=== PATIENT | female | born 1950 | race Caucasian/White ===

== ENCOUNTER 2016-07-23 16:47 | Inpatient (IN) | payer MEDICARE ==
[~2016-07-23] VITALS: Ht 170.2 cm; Wt 107.9 kg
--- NOTE | ~2016-07-23 | ECH ---
Transthoracic Echocardiography Report (TTE) Demographics Patient Name JOO VINES Date of Study 07/24/2016 Patient Number [id number] Visit Number [id number] Date of 1950 Room Number 409 Accession Number [id number] Gender Female Age 66 year(s) Referring Zoe Hester Schedule Supervisor Karine Chan [facility] Physician Physician Interpreting Deny Guerrero Manager [employer] Physician Supervising Ordering Physician Zoe Hester MD, MD/MLP Nurse Stress Causticiser Conclusions Contractility Score Summary Normal Left Ventricular contractility was noted. Summary Technically fair exam. The estimated left ventricular ejection fraction is 55-60%. No significant valvular abnormalities. Recommendation The patient will be given the results of this study by the physician who ordered the exam. Procedure Type of Study TTE procedure:Echo Complete SF. Procedure Date Date: 07/24/2016 Start: 10:44 AM Technical Quality: Fair due to poor acoustical window. Indications:Congestive heart failure, Hypertension, Coronary artery disease, Dizziness and History of CABG. Appropriate Use Criteria: 9 Height: 67 inches Weight: 234 pounds BSA: 2.16 m Rhythm: NSR HR: 60 bpm BP: 133/69 mmHg Allergies - No known allergies. M-Mode/2D Measurements LV Diastolic Dimension: 4.79 cm LV Systolic Dimension: 3.7 cm LV Septum Diastolic: 0.85 cm LV PW Diastolic: 0.83 cm AO Root Dimension: 2.9 cm Cardiac Output: 2.21 l/min LA Dimension: 2.99 cm Cardiac Index: 1.02 l/min*m RV Diastolic Dimension: 3.49 cm LA volume index: 15 ml/m LVOT: 1.71 cm LVOT VTI: 16.02 cm RV Base: 2.3 cm LV Stroke volume: 36.77 ml RV Mid: 1.5 cm LV Stroke volume index: 17.02 ml/m TAPSE: 2.4 cm Doppler Measurements AV Peak Velocity: 1.5 m/s MV Peak E-Wave: 0.68 m/s AV Peak Gradient: 9 mmHg MV Peak A-Wave: 0.6 m/s AV Mean Gradient: 4.67 mmHg MV E/A Ratio: 1.14 LVOT Peak Velocity: 0.85 m/s MV P1/2t: 67.3 msec AV Area (Continuity):1.55 cm MV Deceleration Time: 248.6 msec MV Area (PHT): 3.27 cm PV Peak Velocity: 1.04 m/s E' Septal Velocity: 0.08 m/s PV Peak Gradient: 4.33 mmHg E' Lateral Velocity: 0.1 m/s RA Area: 12.62 cm Findings Left Ventricle Normal left ventricle size and function. Diastolic assessment reveals normal relaxation. Right Ventricle Normal right ventricle structure and function. Left Atrium Normal left atrial size. Right Atrium Normal right atrial size. Mitral Valve Normal mitral valve structure and function. Trivial mitral regurgitation by color Doppler. Aortic Valve The aortic valve is moderately sclerotic. Tricuspid Valve Normal tricuspid valve structure and function. Trivial tricuspid regurgitation by color Doppler. Insufficient jet to calculate pulmonary pressures. Pulmonic Valve The pulmonic valve is not well visualized. Pericardial Effusion No evidence of pericardial effusion. Miscellaneous Visualized portions of the aortic root and ascending aorta appear normal in size. Pleural Effusion No evidence of pleural effusion. Contractility Score LV regional wall motion:(0-Non visualized 1-Normal 2-Hypokinesis 3-Akinesis 4-Dyskinesis 5-Aneurysm) Signature
[~2016-07-23 16:47] MED LIST: ASA CHILDREN'S81 MG PO; ASCORBIC ACID250 MG PO; BENADRYL-DPS25 MG PO; BROVANA15 MCG/2 M IH; CIPRO DPS500 MG PO; COZAAR100 MG PO; FEOSOL-DPS325 MG PO; HYDROCODONE 10M10 MG PO; HYDROCODONE 5MG/5 MG PO; KLOR-CON M2020 ME1 PO; LASIX80 MG PO; LEVAQUIN DPS500 MG PO; LIPITOR DPS20 MG PO; MAALOX DPS30 ML PO; MAG-OX400 MG PO; MIRALAX PACKET17 GM PO; MOBIC7.5 MG PO; NITROSTAT0.4 MG SL; PLAVIX75 MG PO; PROTONIX40 MG PO; PULMICORT0.5 MG/21 IH; SENOKOT S1 TAB PO; SURFAK DPS240 MG PO; SYNTHROID50 MCG PO; TENORMIN DPS50 MG PO; TENORMIN-DPS25 MG PO; TYLENOL DPS325 MG PO; ULTRAM DPS50 MG PO; ZOLOFT DPS50 MG PO; [UNRECOGNIZED DRUG - OTHER] IV
[2016-07-25] MEDS ORDERED: ZOLOFT DPS50 MG PO (21:16)
[2016-07-25] MEDS ORDERED: ZAROXOLYN5 MG PO (21:17)
[2016-07-25] MEDS ORDERED: SYNTHROID DPS0.05 MG PO (21:17)
[2016-07-25] MEDS ORDERED: KLOR-CON M2020 ME1 PO (21:17)
[2016-07-25] MEDS ORDERED: PANTOPRAZOLE SO40 MG PO (21:17)
[2016-07-25] MEDS ORDERED: LIPITOR DPS20 MG PO (21:17)
[2016-07-25] MEDS ORDERED: TENORMIN-DPS25 MG PO (21:18)
[2016-07-25] MEDS ORDERED: LASIX DPS80 MG PO (21:18)
[2016-07-25] MEDS ORDERED: PLAVIX75 MG PO (21:18)
[2016-07-25] MEDS ORDERED: FEOSOL-DPS325 MG PO (21:18)
[2016-07-25] MEDS ORDERED: ASA CHILDREN'S81 MG PO (21:19)
[2016-07-25] MEDS ORDERED: BROVANA15 MCG/2 M IH (21:19)
[2016-07-25] MEDS ORDERED: PULMICORT0.5 MG/2 M IH (21:19)
[2016-07-25] MEDS ORDERED: TYLENOL325 MG PO (21:20)
--- NOTE | 2016-07-29 15:44 | ER ---
ADMIT: 07/23/2016 RM/LOC: 409 [facility] MR#: [id number] [address] [address] JOO VINES [address] [place] [address] Emergency Room Report SEX: F AGE: 66 : 1950 DATE: 07/23/2016 HISTORY: The patient is a 66-year-old female with headache and intractable vomiting at this time. This has been going on for 4 days on and off. She says that it started when she was put on a diuretic metolazone in addition to her diuretic Lasix. She lost 11 pounds in a week and her head is throbbing. She had fever, chills, nausea, and vomiting. REVIEW OF SYSTEMS: Otherwise negative. PAST MEDICAL HISTORY: She has had a CABG, 4 vessel; total left hip; hypertension; CAD; and dizziness. MEDICATIONS: Include; 1. Sertraline. 2. Pantoprazole. 3. Klor-Con. 4. Metolazone. 5. Atorvastatin. 6. Levothyroxine. 7. Atenolol. 8. Furosemide. 9. Clopidogrel or Plavix. 10.Iron sulfate. 11.Aspirin. 12.Formoterol. 13.Budesonide. 14.Tylenol. ALLERGIES: NO ALLERGIES. SOCIAL HISTORY: Lives at home with her . Denies smoking, drugs, or alcohol. PHYSICAL EXAMINATION: GENERAL: Moderate distress female. VITAL SIGNS: Blood pressure 112/84, heart rate 69, respirations 12, temp 97.3, and O2 sats 90%. HEENT: Normal inspection. Pharynx is clear. NECK: Supple. RESPIRATIONS: No distress. CVS: Regular in rate and rhythm. ABDOMEN: Tenderness in the epigastrium due to the vomiting. SKIN: Good color and turgor. ADMIT: 07/23/2016 RM/LOC: 409 [facility] MR#: [id number] [address] [address] JOO VINES [address] [place] [address] Emergency Room Report SEX: F AGE: 66 : 1950 EXTREMITIES: Well perfused. No edema noted. NEUROPSYCH: Oriented x4 and alert. Mood and affect appropriate. at bedside. Cranial nerves II through XII intact. EKG: Bradycardia, 57 beats per minute. BNP 2004. WBC 12, hemoglobin 18, and hematocrit is 51.4. Sodium 133, potassium 3.0, BUN 61, and glucose 170. Alkaline phosphatase is 143 with AST of 7 and GFR of 17. Her urine is pending, we have not got that yet. Dr. Enriquez was contacted for admission. CLINICAL IMPRESSION: Hyperglycemia, hypokalemia, hyponatremia, acute renal insult, congestive heart failure history, nausea and vomiting with moderate dehydration. ILEANA Combs / Jose Nguyen MD / modl JOB #: [id number] CC: Chet Enriquez MD, Attending Physician Chet Enriquez MD, Family Physician
--- NOTE | 2016-08-09 13:11 | HP ---
ADMIT: 07/23/2016 RM/LOC: 409 [facility] MR#: [id number] [id number] [address] JOO VINES [address] [place] [address] History and Physical SEX: F AGE: 66 : 1950 DATE OF SERVICE: CHIEF COMPLAINT: Headache, nausea, and vomiting. HISTORY OF PRESENT ILLNESS: This is a 66-year-old female. She has been having some headache and nausea and vomiting for 4 days, off and on. It started when she was put on diuretic, metolazone. She said over a couple days, she lost about 11 pounds. She started having her head throbbing. She started feeling feverish and chilled, having nausea and vomiting. She also felt lightheaded and woozy and did not like this feeling at all. She did hold her diuretics for couple days but then continued to get worse despite this. PAST MEDICAL HISTORY: Coronary artery disease, status post CABG. She has had a left total hip replacement. She has hypertension. She has chronic kidney disease. She has history of a kidney mass, which is being followed by imaging. Hypothyroidism, hyperlipidemia, GERD, depression, COPD. ALLERGIES: NONE. SOCIAL HISTORY: She lives at home with her . Denies any current illicit drugs or alcohol. FAMILY HISTORY: Reviewed but noncontributory. PHYSICAL EXAMINATION: VITAL SIGNS: Temperature 96.7, pulse 80, respirations 20, blood pressure 133/69, and oxygen saturation 90% on room air. GENERAL: This is a well-appearing 66-year-old female. She is in no apparent distress. She is alert. She is oriented. HEENT: Pupils equal, round, and reactive to light and accommodation. Her extraocular muscles are intact. Her throat is clear. NECK: Supple. Trachea midline. Thyroid not palpable. HEART: Regular rate and rhythm but distant. LUNGS: Diminished, but clear bilaterally. ABDOMEN: Soft, without any tenderness. EXTREMITIES: Lower extremities just trace lower extremity edema. She can move all extremities equally bilaterally. SKIN: No skin changes. LABORATORY AND X-RAY DATA: She did have an elevated creatinine on admission of 2.8, baseline about 1.7; BUN was 61; sodium was 133, potassium 3.0. NT- ProBNP of 2000. Magnesium 2.9. White count 12, hemoglobin 18, platelets of 310. ASSESSMENT: 1. Acute kidney injury. 2. Chronic diastolic congestive heart failure. 3. Chronic kidney disease. ADMIT: 07/23/2016 RM/LOC: 409 [facility] MR#: [id number] [id number] [address] [facility] [place] [address] History and Physical SEX: F AGE: 66 : 1950 4. Coronary artery disease. 5. Chronic obstructive pulmonary disease. 6. Renal mass. 7. Lower extremity edema, this is chronic for her. PLAN: She is admitted to the hospital. We will replace her hypokalemia, give her some IV fluids. Watch her kidney function closely. She is pretty weak. Swallow therapy see her. She is mildly hypoxic, so we will make sure her x-ray is not showing anything. We will recheck her venous Dopplers because of some edema and some of the pain that she had in her legs and recheck her echo as well. I think she likely just got dry from her diuretics, so we will watch her closely. Chet Enriquez MD/ zoltan JOB #: [id number] CC: Chet Enriquez MD, Attending Physician Chet Enriquez MD, Family Physician
--- NOTE | 2016-08-09 13:11 | DS ---
ADMIT: 07/23/2016 RM/LOC: 409 [facility] MR#: [id number] [address] [address] JOO VINES [address] [place] [address] General Discharge Summary SEX: F AGE: 66 : 1950 ADMISSION DATE: 07/23/2016 DISCHARGE DATE: 07/25/2016 FINAL DIAGNOSES: 1. Acute kidney injury. 2. Chronic diastolic congestive heart failure. 3. Chronic kidney disease. 4. Coronary artery disease. 5. Chronic obstructive pulmonary disease. 6. Renal mass. REASON FOR ADMISSION: See dictated H and P, but briefly, this is a 66-year- old female, presented with nausea, vomiting, and not feeling well. HOSPITAL COURSE: She was admitted, found to be having acute kidney injury and looking pretty dry. She was given some IV fluids. Diuretics were held. She was worked with therapy and echo was done, and Dopplers were done and all these were consistent with her. The next day, she still had some low potassium, but her kidney function was on the way to improving. She was feeling much better, was getting up and around by herself. We will discharge her to home. DISCHARGE MEDICATIONS: See discharge medication list for that list. Chet Enriquez MD/ modl JOB #: [id number] CC: Chet Enriquez MD, Attending Physician Chet Enriquez MD, Family Physician
== END 2016-07-25 15:49 | disposition home or self-care (01) | DRG 683 ==
LOC: ER 16:47 → 4PCU 19:28
PROVIDERS: ADMIT Internal Medicine
DX: N17.9 Acute kidney failure, unspecified (principal); I13.0 Hypertensive heart and chronic kidney disease with heart failure and stage 1 through stage 4 chronic kidney disease, or unspecified chronic kidney disease; I50.32 Chronic diastolic (congestive) heart failure; J44.9 Chronic obstructive pulmonary disease, unspecified; E87.1 Hypo-osmolality and hyponatremia; E86.0 Dehydration; R11.2 Nausea with vomiting, unspecified; N18.9 Chronic kidney disease, unspecified; N28.89 Other specified disorders of kidney and ureter; I25.10 Atherosclerotic heart disease of native coronary artery without angina pectoris; E87.6 Hypokalemia; Z95.1 Presence of aortocoronary bypass graft; Z96.642 Presence of left artificial hip joint; Z79.82 Long term (current) use of aspirin